=== PATIENT | female | born 1975 | race Caucasian/White ===

== ENCOUNTER 2016-03-22 17:14 | Emergency (ER) | payer BC ==
[~2016-03-22] VITALS: Ht 160 cm; Wt 58.6 kg
[~2016-03-22 17:14] MED LIST: PRENATAL TABLE1 EAC3 PO
[2016-03-22 18:48] LABS: MCH 29.2 PG (29.0-34.0); MCV 83.3 FL (83-99); MEAN PLAT.VOLUME 10.4 uM^3 (9.5-12.4); PLATELET COUNT 158 K/uL (156-360); RBC DIS.WIDTH-CV 12.1 % (11.8-14.6); RBC DIS.WIDTH-SD 36.4 % (39-53); RED BLOOD COUNT 4.56 M/uL (3.80-5.20); WHITE BLOOD COUNT 3.4 K/uL (4.1-10.2)
[2016-03-22 18:59] LABS: CHLORIDE 102 mEq/L (99-109); POTASSIUM 3.9 mEq/L (3.7-5.4); SODIUM 136 mEq/L (136-147)
[2016-03-22 19:00] LABS: GLUCOSE 107 mg/dL (70-99)
[2016-03-22 19:02] LABS: ANION GAP 12 MEQ/L (2-14)
[2016-03-22 19:04] LABS: GFR ESTIMATE (CALCULATED) > 59 mL/min/
[2016-03-22 19:05] LABS: UREA NITROGEN (BUN) 15 mg/dL (9-23)
[2016-03-22] MEDS ORDERED: VENTOLIN HFA18 GM IH (20:33)
[2016-03-22 21:17] LABS: TOTAL BILIRUBIN 0.7 mg/dL (0.0-1.0)
[2016-03-22 21:18] LABS: ALKALINE PHOSPHATASE 48 IU/L (3-129)
[2016-03-22 21:20] LABS: DIRECT BILIRUBIN 0.2 mg/dL (0.0-0.3)
[2016-03-22 21:22] LABS: LIPASE 21 U/L (1.0-51.0)
[2016-03-22 21:27] LABS: QUANTITATIVE HCG < 4.0 MIU/ML
[2016-03-22 21:41] VITALS: BP 114/64
== END 2016-03-22 21:42 | disposition home or self-care (01) ==
LOC: EME 17:14
DX: J18.9 Pneumonia, unspecified organism (principal); D72.819 Decreased white blood cell count, unspecified; R10.30 Lower abdominal pain, unspecified
CPT/HCPCS: 71020; 80048; 80076; 83690; 84702; 85027; 93005; 94640; 99281; 99284